=== PATIENT | male | born 1990 | race Caucasian/White ===

== ENCOUNTER 2017-11-29 13:18 | Emergency (ER) | payer MEDICAID ==
[~2017-11-29] VITALS: Ht 167.6 cm; Wt 91.0 kg
[2017-11-29 14:23] VITALS: BP 126/65
[2017-11-29] MEDS ORDERED: LIDOCAINE HCL 1% 20ML VIAL (Pyxis) INJ MC ONE (18:45)
== END 2017-11-29 19:09 | disposition home or self-care (01) ==
LOC: ER 13:32
DX: L02.412 Cutaneous abscess of left axilla (principal); F17.200 Nicotine dependence, unspecified, uncomplicated; Z91.018 Allergy to other foods
CPT/HCPCS: 10060; 99283; J3490

== ENCOUNTER 2022-10-23 11:49 | Emergency (ER) | payer MEDICAID ==
[~2022-10-23] VITALS: Ht 162.6 cm; Wt 109.0 kg
[2022-10-23 12:33] VITALS: BP 121/52
[2022-10-23] MEDS ORDERED: TETANUS, DIPHTHERIA, PERTUSSIS VAC/PF 0.5ML (>10YR OLD) IM ONE (17:00)
[2022-10-23] MEDS ORDERED: LIDOCAINE HCL/PF 1% 10 MG/ML 5ML VIAL INFIL ONE (17:00)
[2022-10-23] MEDS ORDERED: CEPH500T MT ×3 (17:05→17:50)
[2022-10-23] MEDS ORDERED: SELE325S2 TP ×3 (17:05→17:55)
[2022-10-23] MEDS ORDERED: SULF1TAB48 MT (17:05)
[2022-10-23] MEDS ORDERED: GRIS500T6 MT ×3 (17:05→17:55)
== END 2022-10-23 18:06 | disposition home or self-care (01) ==
LOC: ER 12:07
DX: B35.0 Tinea barbae and tinea capitis (principal); Z91.018 Allergy to other foods
CPT/HCPCS: 10060; 90471; 90715; 99283

== ENCOUNTER 2023-09-09 21:51 | Emergency (ER) | payer MEDICAID, OTHER ==
[~2023-09-09] VITALS: Ht 172.7 cm; Wt 72.6 kg
[~2023-09-09 21:51] MED LIST: CEPH500T MT; GRIS500T6 MT; SELE325S2 TP; SULF1TAB48 MT
[2023-09-09 21:57] VITALS: O2SAT 97
[2023-09-09] MEDS ORDERED: ACETAMINOPHEN 325MG TABLET PO ONE (22:30)
[2023-09-09 23:00] LABS: BASOPHILS % 0.6 % (0.0-2.0); EOSINOPHILS % 0.6 % (0.0-5.0); HEMATOCRIT. 39.6 % (42.0-52.0); HEMOGLOBIN. 13.6 g/dL (14.0-18.0); LYMPHOCYTES % 12.5 % (20.0-50.0); MEAN CORPUSCULAR HEMOGLOBIN 31.3 pg (28.0-32.0); MEAN CORPUSCULAR HGB CONC 34.4 g/dL (31.0-37.0); MEAN PLATELET VOLUME 7.8 fl (7.4-10.4); MONOCYTES % 9.9 % (2.0-8.0); NEUTROPHILS % 76.4 % (40.0-76.0); PLATELET 316 x1000/uL (130-400); RED BLOOD CELL COUNT 4.35 mill/uL (4.7-6.1); RED CELL DISTRIBUTION WIDTH 13.4 % (11.6-14.6); WHITE BLOOD COUNT 11.1 x1000/uL (4.5-11.0)
[2023-09-09 23:05] LABS: CLARITY URINE CLEAR (CLEAR); COLOR URINE YELLOW (YELLOW); GLUCOSE URINE NEGATIVE (NEGATIVE); KETONES URINE TRACE (NEGATIVE); LEUKOCYTE ESTERASE URINE NEGATIVE (NEGATIVE); NITRITE URINE NEGATIVE (NEGATIVE); OCCULT BLOOD URINE NEGATIVE (NEGATIVE); PROTEIN URINE NEGATIVE (NEGATIVE); SPECIFIC GRAVITY URINE 1.019 (1.005-1.030)
[2023-09-09 23:13] LABS: *AMPHETAMINES SCREEN URINE PRESUMPTIVE POSITIVE (NEGATIVE); *BARBITURATES SCREEN URINE NEGATIVE (NEGATIVE); *BENZODIAZEPINES SCREEN URINE NEGATIVE (NEGATIVE); *COCAINE SCREEN URINE PRESUMPTIVE POSITIVE (NEGATIVE); CANNABINOID URINE SCREEN PRESUMPTIVE POSITIVE (NEGATIVE); ECSTASY MDMA SCREEN URINE NEGATIVE (NEGATIVE); METHADONE URINE SCREEN Neg (NEGATIVE); OPIATES URINE SCREEN NEGATIVE (NEGATIVE); PHENCYCLIDINE URINE SCREEN NEGATIVE (NEGATIVE)
[2023-09-09 23:14] LABS: ACETAMINOPHEN 4 ug/mL (10-30); ALANINE AMINOTRANSFERASE 40 IU/L (10-49); ALBUMIN 4.3 g/dL (3.2-4.8); ASPARTATE AMINOTRANSFERASE 63 IU/L (<34); BILIRUBIN TOTAL 0.8 mg/dL (0.1-1.0); CALCIUM 9.3 mg/dL (8.7-10.4); CARBON DIOXIDE 29 mEq/L (21-32); CHLORIDE 102 mEq/L (98-107); CREATININE 1.1 mg/dL (0.6-1.3); GLUCOSE 122 mg/dL (70-105); POTASSIUM 5.1 mEq/L (3.5-5.1); PROTEIN TOTAL 6.6 g/dL (6.0-8.3); SODIUM 136 mEq/L (136-145); UREA NITROGEN BLOOD 14 mg/dL (9-23)
[2023-09-09 23:35] LABS: ETHANOL BLOOD < 10 mg/dL (<10)
[2023-09-10 10:23] VITALS: BP 111/61; PULSE 71; RESP 12; TEMP 98.2
== END 2023-09-10 12:23 | disposition home or self-care (01) ==
LOC: ER 21:51
DX: R45.851 Suicidal ideations (principal)
CPT/HCPCS: 36415; 80053; 80305; 80307; 80320; 80329; 81003; 85025; 99285; G0480

== ENCOUNTER 2023-12-21 20:35 | Emergency (ER) | payer OTHER ==
[~2023-12-21] VITALS: Ht 175.3 cm; Wt 73.0 kg
[2023-12-21 23:00] LABS: HEMATOCRIT. 37.4 % (42.0-52.0); HEMOGLOBIN. 12.6 g/dL (14.0-18.0); MEAN CORPUSCULAR HEMOGLOBIN 29.9 pg (28.0-32.0); MEAN CORPUSCULAR HGB CONC 33.6 g/dL (31.0-37.0); MEAN CORPUSCULAR VOLUME 88.9 fL (80.0-94.0); MEAN PLATELET VOLUME 7.8 fl (7.4-10.4); PLATELET 334 x1000/uL (130-400); RED BLOOD CELL COUNT 4.21 mill/uL (4.7-6.1); RED CELL DISTRIBUTION WIDTH 13.2 % (11.6-14.6); WHITE BLOOD COUNT 17.5 x1000/uL (4.5-11.0)
[2023-12-21 23:01] LABS: DIFFERENTIAL COMMENT 1
[2023-12-21 23:11] LABS: ALANINE AMINOTRANSFERASE 40 IU/L (10-49); ALBUMIN 4.6 g/dL (3.2-4.8); ASPARTATE AMINOTRANSFERASE 88 IU/L (<34); BILIRUBIN TOTAL 0.7 mg/dL (0.1-1.0); CALCIUM 9.1 mg/dL (8.7-10.4); CARBON DIOXIDE 22 mEq/L (21-32); CHLORIDE 104 mEq/L (98-107); CREATININE 1.3 mg/dL (0.6-1.3); GLUCOSE 92 mg/dL (70-105); POTASSIUM 4.1 mEq/L (3.5-5.1); PROTEIN TOTAL 7.3 g/dL (6.0-8.3); SODIUM 137 mEq/L (136-145); UREA NITROGEN BLOOD 36 mg/dL (9-23)
[2023-12-21 23:12] LABS: ETHANOL BLOOD < 10 mg/dL (<10)
[2023-12-21 23:33] LABS: PLATELET ESTIMATE NORMAL
[2023-12-22 00:08] LABS: CLARITY URINE CLEAR (CLEAR); COLOR URINE YELLOW (YELLOW); GLUCOSE URINE NEGATIVE (NEGATIVE); KETONES URINE 1+ (NEGATIVE); LEUKOCYTE ESTERASE URINE NEGATIVE (NEGATIVE); NITRITE URINE NEGATIVE (NEGATIVE); OCCULT BLOOD URINE NEGATIVE (NEGATIVE); PH URINE 5.5 (4.5-8.0); PROTEIN URINE NEGATIVE (NEGATIVE); SPECIFIC GRAVITY URINE 1.014 (1.005-1.030); UROBILINOGEN URINE 0.2 E.U./dL (0.2-1.0)
[2023-12-22 00:15] LABS: ACETAMINOPHEN < 2 ug/mL (10-30); TROPONIN I HIGH SENSITIVITY 16 ng/L (3.0-53)
[2023-12-22] MEDS: SODIUM CHLORIDE 0.9% 1,000 ML IV ONE (00:16)
[2023-12-22 00:20] LABS: *AMPHETAMINES SCREEN URINE NEGATIVE (NEGATIVE); *BARBITURATES SCREEN URINE NEGATIVE (NEGATIVE); *BENZODIAZEPINES SCREEN URINE PRESUMPTIVE POSITIVE (NEGATIVE); *COCAINE SCREEN URINE NEGATIVE (NEGATIVE); CANNABINOID URINE SCREEN PRESUMPTIVE POSITIVE (NEGATIVE); ECSTASY MDMA SCREEN URINE NEGATIVE (NEGATIVE); METHADONE URINE SCREEN Neg (NEGATIVE); OPIATES URINE SCREEN NEGATIVE (NEGATIVE); PHENCYCLIDINE URINE SCREEN NEGATIVE (NEGATIVE)
[2023-12-22] MEDS: MIDAZOLAM HCL 2 MG/2 ML VIAL IV ONE ×2 (01:45→07:40)
[2023-12-22] MEDS: HALOPERIDOL LACTATE 5MG/ML VIAL IM ONE (07:40)
[2023-12-22] MEDS ORDERED: LORAZEPAM 2MG/ML INJ IV PRN (13:30)
[2023-12-22] MEDS ORDERED: HALOPERIDOL LACTATE 5MG/ML VIAL IM PRN (13:30)
[2023-12-22 16:41] VITALS: O2SAT 99
[2023-12-23 06:25] LABS: BASOPHILS % 0.6 % (0.0-2.0); EOSINOPHILS % 0.9 % (0.0-5.0); HEMATOCRIT. 35.4 % (42.0-52.0); LYMPHOCYTES % 11.9 % (20.0-50.0); MEAN CORPUSCULAR VOLUME 91.1 fL (80.0-94.0); MEAN PLATELET VOLUME 7.7 fl (7.4-10.4); MONOCYTES % 13.4 % (2.0-8.0); NEUTROPHILS % 73.2 % (40.0-76.0); PLATELET 247 x1000/uL (130-400); RED BLOOD CELL COUNT 3.89 mill/uL (4.7-6.1); RED CELL DISTRIBUTION WIDTH 13.1 % (11.6-14.6); WHITE BLOOD COUNT 7.4 x1000/uL (4.5-11.0)
[2023-12-23] MEDS: OLANZAPINE 5MG TABLET ODT PO SCH (09:31)
[2023-12-23] MEDS: HALOPERIDOL LACTATE 5MG/ML VIAL IM PRN (11:15)
[2023-12-23] MEDS: DIPHENHYDRAMINE 50MG/ML VIAL IM PRN (12:27)
[2023-12-24 09:24] VITALS: BP 151/75; PULSE 61; RESP 15; TEMP 98.1
== END 2023-12-24 09:38 ==
LOC: ER 20:35
DX: R46.2 Strange and inexplicable behavior (principal); Z20.822 Contact with and (suspected) exposure to COVID-19
CPT/HCPCS: 80053; 80305; 81003; 80307; 80329; 80320; 85025; 84484; 36415; 71045; 93005; 96361; 96372; 96374; 96376; 99291; 87426; 70450; J7030; J1200 ×2; J1630 ×2; J2250; J2060; G0480